=== PATIENT | male | born 1985 | race Caucasian/White ===

== ENCOUNTER 2019-06-27 00:50 | Emergency (ER) | payer BC ==
[~2019-06-27] VITALS: Ht 185.4 cm; Wt 104.3 kg
--- NOTE | 2019-06-27 01:09 | PHYS DOC ---
Adult General Chief Complaint Chief Complaint: HEARTBURN/GI DISTRESS HPI HPI 34-year-old male presents to the emergency department with complaints of vomiting, cough, shortness of breath. Patient has a history of a viral illness recently, he states over the last 4-5 nights he's waking up with cough and subsequently vomiting with dry heaves. He states tonight he had shortness of breath after vomiting felt like he couldn't breathe at that time. He denies any fever, states it is burning in the back of his throat, denies abdominal discomfort or diarrhea. He does not have shortness of breath on examination. Saturations 99%, heart rate 85. Review of Systems Review of Systems Constitutional: Denies fever or chills [] HENT: Denies nasal congestion, + sore throat [] Respiratory: cough, shortness of breath Cardiovascular: No additional information not addressed in HPI [] GI: Denies abdominal pain, nausea, + vomiting, no bloody stools or diarrhea [] Neurologic: Denies headache, focal weakness or sensory changes [] All other systems were reviewed and found to be within normal limits, except as documented in this note. Current Medications Current Medications Current Medications Medications (Trade) Dose Ordered Sig/[place] Start Time Stop Time Status Last Admin Dose Admin Multi-Ingredient Mouthwash/Gargle (Gi Cocktail) 20 ml 1X ONCE 06/27/19 02:00 06/27/19 02:01 DC 06/27/19 01:49 20 ML Allergies Allergies Allergies Coded Allergies Type Severity Reaction Last Updated Verified No Known Drug Allergies 06/27/19 No Physical Exam Physical Exam Constitutional: Well developed, well nourished, no acute distress, non-toxic appearance. [] HENT: Normocephalic, atraumatic, bilateral external ears normal, oropharynx moist, no oral exudates, nose normal. [] Eyes: PERRLA, EOMI, conjunctiva normal, no discharge. [] Cardiovascular:Heart rate regular rhythm, no murmur [] Lungs & Thorax: Bilateral breath sounds clear to auscultation [] Abdomen: Bowel sounds normal, soft, no tenderness, no masses, no pulsatile masses. [] Extremities: No tenderness, no cyanosis,no edema. [] Neurologic: Alert and oriented X 3, no focal deficits noted. [] Psychologic: Affect normal, judgement normal, anxious[] Current Patient Data Vital Signs Vital Signs Date Time Temp Pulse Resp B/P (MAP) Pulse Ox O2 Delivery O2 Flow Rate FiO2 06/27/19 00:57 97.8 84 17 145/97 (113) 99 Room Air 97.8 Lab Values Laboratory Tests Test 06/27/19 01:25 White Blood Count 5.2 x10^3/uL (4.0-11.0) Red Blood Count 5.34 x10^6/uL (4.30-5.70) Hemoglobin 15.2 g/dL (13.0-17.5) Hematocrit 43.6 % (39.0-53.0) Mean Corpuscular Volume 82 fL (79-100) Mean Corpuscular Hemoglobin 29 pg (25-35) Mean Corpuscular Hemoglobin Concent 35 g/dL (31-37) Red Cell Distribution Width 12.8 % (11.5-14.5) Platelet Count 326 x10^3/uL (140-400) Neutrophils (%) (Auto) 37 % (31-73) Lymphocytes (%) (Auto) 50 % (24-48) H Monocytes (%) (Auto) 11 % (0-9) H Eosinophils (%) (Auto) 3 % (0-3) Basophils (%) (Auto) 0 % (0-3) Neutrophils # (Auto) 1.9 x10^3/uL (1.8-7.7) Lymphocytes # (Auto) 2.6 x10^3/uL (1.0-4.8) Monocytes # (Auto) 0.5 x10^3/uL (0.0-1.1) Eosinophils # (Auto) 0.1 x10^3/uL (0.0-0.7) Basophils # (Auto) 0.0 x10^3/uL (0.0-0.2) Sodium Level 139 mmol/L (136-145) Potassium Level 3.9 mmol/L (3.5-5.1) Chloride Level 100 mmol/L (98-107) Carbon Dioxide Level 29 mmol/L (21-32) Anion Gap 10 (6-14) Blood Urea Nitrogen 12 mg/dL (8-26) Creatinine 1.0 mg/dL (0.7-1.3) Estimated GFR (Cockcroft-Gault) 86.6 BUN/Creatinine Ratio 12 (6-20) Glucose Level 102 mg/dL (70-99) H Calcium Level 9.3 mg/dL (8.5-10.1) Total Bilirubin 0.3 mg/dL (0.2-1.0) Aspartate Amino Transferase (AST) 29 U/L (15-37) Alanine Aminotransferase (ALT) 37 U/L (16-63) Alkaline Phosphatase 85 U/L (46-116) Total Protein 8.0 g/dL (6.4-8.2) Albumin 4.0 g/dL (3.4-5.0) Albumin/Globulin Ratio 1.0 (1.0-1.7) Laboratory Tests 06/27/19 01:25 Laboratory Tests 06/27/19 01:25 EKG EKG [] Radiology/Procedures Radiology/Procedures Wet read chest xray without evidence of acute process[] Course & Med Decision Making Course & Med Decision Making Pertinent Labs and Imaging studies reviewed. (See chart for details) []34-year-old male presents to the emergency department with complaints of vomiting, cough, shortness of breath. Patient has a history of a viral illness recently, he states over the last 4-5 nights he's waking up with cough and subsequently vomiting with dry heaves. He states tonight he had shortness of breath after vomiting felt like he couldn't breathe at that time. He denies any fever, states it is burning in the back of his throat, denies abdominal discomfort or diarrhea. He does not have shortness of breath on examination. Saturations 99%, heart rate 85. Labs, imaging reviewed. No evidence of acute process. She received GI cocktail with improvement. His symptoms have subsequently resolved. Will plan for discharge and follow-up as an outpatient with his primary care physician. Return precautions provided. Dragon Disclaimer Dragon Disclaimer This electronic medical record was generated, in whole or in part, using a voice recognition dictation system. Departure Departure Impression: Primary Impression: GERD (gastroesophageal reflux disease) Additional Impression: Vomiting Disposition: HOME, SELF-CARE Condition: IMPROVED Referrals: UNKNOWN PCP NAME (PCP) Patient Instructions: Gastroesophageal Reflux Disease, Adult, Ufpb-[id number] Additional Instructions: Recommend follow up with PCP 3 - 5 days Return to the ER with worsening symptoms, intractable pain, fever, altered mental status Tylenol/Motrin as needed for pain Rx provided for protonix BID - take as directed Scripts Pantoprazole Sodium (PROTONIX) 20 Mg Tablet. 40 MG PO BID, #60 TAB Prov: PAULO JENNINGS MD 06/27/19 Problem Qualifiers Primary Impression: GERD (gastroesophageal reflux disease) Esophagitis presence: without esophagitis Qualified Codes: K21.9 - Gastro- esophageal reflux disease without esophagitis Additional Impression: Vomiting Vomiting type: unspecified Vomiting Intractability: non-intractable Nausea presence: with nausea Qualified Codes: R11.2 - Nausea with vomiti ng, unspecified PAULO JENNINGS MD Jun 27, 2019 01:09
[2019-06-27 01:36] LABS: BASO % 0 % (0-3); EOS # 0.1 x10^3/uL (0.0-0.7); EOS % 3 % (0-3); HEMATOCRIT 43.6 % (39.0-53.0); HEMOGLOBIN 15.2 g/dL (13.0-17.5); LYMPH # 2.6 x10^3/uL (1.0-4.8); LYMPH % 50 % (24-48); MEAN CORPUSCULAR HEMOGLOBIN 29 pg (25-35); MEAN CORPUSCULAR HGB CONC 35 g/dL (31-37); MEAN CORPUSCULAR VOLUME 82 fL (79-100); MONO # 0.5 x10^3/uL (0.0-1.1); MONO % 11 % (0-9); NEUT # 1.9 x10^3/uL (1.8-7.7); NEUT % 37 % (31-73); PLATELET COUNT 326 x10^3/uL (140-400); RED BLOOD COUNT 5.34 x10^6/uL (4.30-5.70); RED CELL DISTRIBUTION WIDTH 12.8 % (11.5-14.5); WHITE BLOOD COUNT 5.2 x10^3/uL (4.0-11.0)
[2019-06-27 01:43] LABS: CALCIUM 9.3 mg/dL (8.5-10.1); GFR 86.6; POTASSIUM 3.9 mmol/L (3.5-5.1)
[2019-06-27 01:49] LABS: TOTAL BILIRUBIN 0.3 mg/dL (0.2-1.0)
[2019-06-27] MEDS ORDERED: LIDO:MAALOX 1:1 20 ML SINGLE DOSE. SWSW ONE (02:00)
[2019-06-27 02:30] VITALS: BP 135/89
[2019-06-27] MEDS ORDERED: PANT20TA2 PO (02:34)
--- NOTE | 2019-06-27 03:26 | RAD ---
EXAM: CHEST ONE VIEW. HISTORY: Cough. COMPARISON: None. FINDINGS: A frontal view of the chest is obtained. There are no confluent infiltrates. There is no pneumothorax or pleural effusion. The heart is at the upper limits of normal size given this projection. IMPRESSION: 1. No confluent infiltrates. Electronically signed by: Ana Porter MD (06/27/2019 3:23 AM) [facility]
== END 2019-06-27 02:48 | disposition home or self-care (01) ==
LOC: ER 00:50
DX: K21.9 Gastro-esophageal reflux disease without esophagitis (principal); R11.2 Nausea with vomiting, unspecified
CPT/HCPCS: 36415; 71045; 80053; 85025; 99285